=== PATIENT | female | born 1980 | race Caucasian/White ===

== ENCOUNTER → 2020-07-29 12:21 | Outpatient (BNVA) | payer OTHER, SELFPAY | PROVIDERS: PCP Internal Medicine; Referring Provider Internal Medicine; Visit Provider Surgery | DX: Z01.818 Encounter for other preprocedural examination (principal); E66.9 Obesity, unspecified; Z68.36 Body mass index [BMI] 36.0-36.9, adult; R06.02 Shortness of breath; I10 Essential (primary) hypertension | CPT/HCPCS: 99205 ==

== ENCOUNTER → 2020-08-05 08:18 | Outpatient (BNVA) | payer OTHER, SELFPAY | PROVIDERS: PCP Internal Medicine; Visit Provider Physician Assistant | DX: Z01.818 Encounter for other preprocedural examination (principal) | CPT/HCPCS: 99211 ==

== ENCOUNTER 2020-08-05 15:31 | Outpatient (REF) | payer OTHER, SELFPAY ==
[2020-08-05 15:58] LABS: COVID-19 Test Negative (Negative)
[2020-08-06 07:38] LABS: Alanine Aminotransferase 21 U/L (0-31); Albumin Level 4.2 g/dL (3.5-5.0); Alkaline Phosphatase 63 U/L (39-117); Anion Gap 14 (12-20); Aspartate Amino Transferase 14 U/L (5-31); Bilirubin Total 0.6 mg/dL (0.0-1.0); Blood Urea Nitrogen 17 mg/dL (9-16); C Reactive Protein 2.45 mg/dL (< or = 0.50); Calcium 9.1 mg/dL (8.4-10.2); Carbon Dioxide 27 mmol/L (22-29); Chloride 101 mmol/L (96-108); Cholesterol 176 mg/dL; Estimated Glomerular Filt Rate > 60; Glucose Fasting 217 mg/dL (60-99); HDL Cholesterol 41 mg/dL; Iron 81 mcg/dL (30-160); LDL Cholesterol Calculated 93 mg/dl; Percent Iron Saturation 24 % (15-50); Potassium 4.5 mmol/l (3.3-5.1); Sodium 137 mmol/L (135-145); Total Iron Binding Capacity 340 mcg/dL (228-428); Total Protein 7.6 g/dL (6.5-8.0); Triglycerides 210 mg/dL; Unsaturated Iron Binding 259 ug/dL
[2020-08-06 07:58] LABS: Thyroid Stimulating Hormone 1.69 mIU/mL (0.32-4.0); Vitamin D 25-OH Total 10.4 ng/mL (>30)
[2020-08-06 09:55] LABS: Vitamin B12 381 pg/mL (200-900)
[2020-08-07 13:31] LABS: H Pylori Breath Test DETECTED (NOT DETECTED)
[2020-08-10 05:12] LABS: Zinc 88 mcg/dL (60-130)
[2020-08-11 00:52] LABS: Calcium (PTHI) 9.3 mg/dL (8.6-10.2); PTHI 52 pg/mL (14-64)
[2020-08-11 11:56] LABS: Vitamin B1 9 nmol/L (8-30)
[2020-08-11 21:17] LABS: Vitamin A 62 mcg/dL (38-98)
== END 2020-08-05 15:32 | disposition home or self-care (01) ==
LOC: HO.LAB 15:31
PROVIDERS: Surgery; Visit Provider Internal Medicine
DX: Z01.818 Encounter for other preprocedural examination (principal); Z20.828 Contact with and (suspected) exposure to other viral communicable diseases
CPT/HCPCS: 83013; 87635

== ENCOUNTER 2020-08-06 06:00 | Outpatient (REF) | payer OTHER, SELFPAY | END 2020-08-06 06:01 | disposition home or self-care (01) | LOC: HO.LAB 06:00 | PROVIDERS: PCP Internal Medicine; Visit Provider Surgery | DX: Z01.818 Encounter for other preprocedural examination (principal); E55.9 Vitamin D deficiency, unspecified | CPT/HCPCS: 80053; 80061; 82306; 82607; 83540; 83970; 84425; 84443; 84590; 84630; 86140 ==

== ENCOUNTER 2020-08-11 14:15 | Outpatient (REF) | payer OTHER, SELFPAY ==
[2020-08-11 14:37] LABS: COVID-19 Test Negative (Negative)
== END 2020-08-11 14:16 | disposition home or self-care (01) ==
LOC: HO.LAB 14:15
PROVIDERS: Visit Provider Internal Medicine
DX: Z20.828 Contact with and (suspected) exposure to other viral communicable diseases (principal)
CPT/HCPCS: 87635

== ENCOUNTER 2020-08-14 11:56 | Outpatient (REF) | payer OTHER, SELFPAY ==
[2020-08-14 12:47] LABS: COVID-19 Test Negative (Negative)
== END 2020-08-14 11:57 | disposition home or self-care (01) ==
LOC: HO.LAB 11:56
PROVIDERS: Visit Provider Internal Medicine
DX: Z20.828 Contact with and (suspected) exposure to other viral communicable diseases (principal)
CPT/HCPCS: 87635

== ENCOUNTER → 2020-08-19 13:05 | Outpatient (BNVA) | payer OTHER, SELFPAY | PROVIDERS: Visit Provider Surgery | DX: E66.9 Obesity, unspecified (principal); I10 Essential (primary) hypertension; R73.03 Prediabetes; Z68.36 Body mass index [BMI] 36.0-36.9, adult; Z71.3 Dietary counseling and surveillance; Z87.891 Personal history of nicotine dependence; Z79.899 Other long term (current) drug therapy | CPT/HCPCS: 99212 ==

== ENCOUNTER → 2020-08-26 07:44 | Outpatient (BNVA) | payer OTHER, SELFPAY | PROVIDERS: PCP Internal Medicine; Referring Provider Internal Medicine; Visit Provider Dietitian, Registered | DX: Z76.89 Persons encountering health services in other specified circumstances (principal) ==

== ENCOUNTER 2020-09-14 07:58 | Outpatient (REF) | payer OTHER, SELFPAY ==
[2020-09-14 09:20] LABS: COVID-19 Test Negative (Negative); IDNOW Serial# 55D5AD1C
== END 2020-09-14 07:59 | disposition home or self-care (01) ==
LOC: HO.EMPCOV 07:58
PROVIDERS: Visit Provider Internal Medicine
DX: Z20.828 Contact with and (suspected) exposure to other viral communicable diseases (principal)
CPT/HCPCS: 87635; C9803

== ENCOUNTER 2020-09-22 14:25 | Outpatient (REF) | payer OTHER, SELFPAY ==
[2020-09-22 14:47] LABS: COVID-19 Test Negative (Negative); IDNOW Serial# 55D5AD1C
== END 2020-09-22 14:26 | disposition home or self-care (01) ==
LOC: HO.LAB 14:25
PROVIDERS: Visit Provider Internal Medicine
DX: Z20.828 Contact with and (suspected) exposure to other viral communicable diseases (principal)
CPT/HCPCS: 87635; C9803

== ENCOUNTER 2020-10-10 12:32 | Outpatient (REF) | payer OTHER, SELFPAY ==
[2020-10-10 13:42] LABS: Influenza A PCR NEGATIVE (Negative); Influenza B PCR NEGATIVE (Negative); Resp Syncy Virus RNA Qual PCR NEGATIVE (Negative); SARS COV2 PCR INHOUSE NEGATIVE (Negative)
== END 2020-10-10 12:33 | disposition home or self-care (01) ==
LOC: HO.LAB 12:32
PROVIDERS: Visit Provider Internal Medicine
DX: Z20.828 Contact with and (suspected) exposure to other viral communicable diseases (principal)
CPT/HCPCS: 0241U